=== PATIENT | female | born 1950 | race Caucasian/White ===

== ENCOUNTER 2017-04-22 23:13 | Emergency (ER) | payer OTHER, MEDICAID ==
[~2017-04-22] VITALS: Ht 162.6 cm; Wt 79.0 kg
[2017-04-22] MEDS ORDERED: ONDANSETRON HCL 4MG/2ML VIAL IV STA (23:27)
[2017-04-22] MEDS ORDERED: KETOROLAC 30MG/ML VIAL IV STA (23:27)
[2017-04-22] MEDS ORDERED: SODIUM CHLORIDE 0.9% 1,000 ML IV ONE (23:27)
[2017-04-22] MEDS ORDERED: FAMOTIDINE 20MG/2ML VIAL IV ONE (23:30)
[2017-04-22 23:58] LABS: BASOPHILS % 0.5 % (0.0-2.0); EOSINOPHILS % 0.9 % (0.0-5.0); HEMATOCRIT. 39.9 % (36.0-48.0); HEMOGLOBIN. 13.5 g/dL (12.0-16.0); LYMPHOCYTES % 9.9 % (20.0-50.0); MEAN CORPUSCULAR HEMOGLOBIN 31.4 pg (28.0-32.0); MEAN CORPUSCULAR VOLUME 92.6 fL (81.0-99.0); MONOCYTES % 6.6 % (2.0-8.0); NEUTROPHILS % 82.1 % (40.0-76.0); PLATELET 213 x1000/uL (130-400); RED BLOOD CELL COUNT 4.31 mill/uL (4.2-5.4); RED CELL DISTRIBUTION WIDTH 13.1 % (11.6-14.6)
[2017-04-23 00:13] LABS: CARBON DIOXIDE 24 mEq/L (21-32); CHLORIDE 107 mEq/L (98-107); ETHANOL BLOOD < 10 mg/dL; TROPONIN I < 0.02 ng/mL (0.00-0.04)
[2017-04-23] MEDS ORDERED: MORPHINE SULFATE 2 MG/ML CPJ (NOT FOR IM USE) IV STA (00:36)
[2017-04-23] MEDS ORDERED: MORPHINE SULFATE 10 MG/ML CPJ IV NR (00:45)
[2017-04-23 04:20] VITALS: BP 128/72
== END 2017-04-23 04:23 | disposition home or self-care (01) ==
LOC: ER 23:18
DX: K80.70 Calculus of gallbladder and bile duct without cholecystitis without obstruction (principal); K21.9 Gastro-esophageal reflux disease without esophagitis
CPT/HCPCS: 36415; 71010; 74176; 76705; 80053; 83605; 83690; 83880; 84484; 85025; 85610; 86850; 86900; 86901; 93005; 93971; 96361; 96374; 96375; 99285; G0482; J1885; J2270; J2405; J3490; J7030

== ENCOUNTER 2021-02-18 09:56 | Inpatient (IN) | payer MEDICARE, MEDICAID ==
[~2021-02-18] VITALS: Ht 167.6 cm; Wt 85.7 kg
[2021-02-18] MEDS ORDERED: LORAZEPAM 2MG/ML CPJ IV STA (10:45)
[2021-02-18 11:08] LABS: BASOPHILS % 0.1 % (0.0-2.0); EOSINOPHILS % 0.2 % (0.0-5.0); HEMATOCRIT. 45.2 % (36.0-48.0); HEMOGLOBIN. 15.3 g/dL (12.0-16.0); MEAN CORPUSCULAR HEMOGLOBIN 33.3 pg (28.0-32.0); MEAN CORPUSCULAR VOLUME 98.3 fL (81.0-99.0); MONOCYTES % 6.6 % (2.0-8.0); NEUTROPHILS % 81.1 % (40.0-76.0); PLATELET 181 x1000/uL (130-400)
[2021-02-18 11:16] LABS: PROTHROMBIN TIME 10.9 sec (9.6-11.0)
[2021-02-18 11:17] LABS: CHLORIDE 104 mEq/L (98-107)
[2021-02-18 11:21] LABS: ETHANOL BLOOD < 10 mg/dL
[2021-02-18 11:49] LABS: CLARITY URINE CLEAR (CLEAR); COLOR URINE YELLOW (YELLOW); KETONES URINE TRACE (NEGATIVE); LEUKOCYTE ESTERASE URINE NEGATIVE (NEGATIVE); NITRITE URINE NEGATIVE (NEGATIVE); OCCULT BLOOD URINE NEGATIVE (NEGATIVE); PROTEIN URINE NEGATIVE (NEGATIVE); SPECIFIC GRAVITY URINE 1.016 (1.005-1.030); UROBILINOGEN URINE 0.2 E.U./dL (0.2-1.0)
[2021-02-18 12:02] LABS: *AMPHETAMINES SCREEN URINE NEGATIVE (NEGATIVE); *BARBITURATES SCREEN URINE NEGATIVE (NEGATIVE); *BENZODIAZEPINES SCREEN URINE NEGATIVE (NEGATIVE); *COCAINE SCREEN URINE NEGATIVE (NEGATIVE); METHADONE URINE SCREEN NEGATIVE (NEGATIVE)
[2021-02-18 12:03] LABS: CANNABINOID URINE SCREEN NEGATIVE (NEGATIVE); OPIATES URINE SCREEN NEGATIVE (NEGATIVE); PHENCYCLIDINE URINE SCREEN NEGATIVE (NEGATIVE)
[2021-02-18] MEDS ORDERED: FOLIC ACID 1 MG, THIAMINE HCL 400 MG, MVI, ADULT NO.1 10 ML in DEXTROSE 5% WATER 1,000 ML IV SCH (13:30)
[2021-02-18] MEDS ORDERED: ACETAMINOPHEN 650MG SUPP PR PRN (16:30)
[2021-02-18] MEDS ORDERED: ONDANSETRON HCL 4MG/2ML INJ IV PRN (16:30)
[2021-02-18] MEDS ORDERED: IPRATROPIUM/ALBUTEROL 0.5-3(2.5)MG/3ML NEB NEB PRN (16:30)
[2021-02-18] MEDS ORDERED: MORPHINE SULFATE 2 MG/ML CPJ (NOT FOR IM USE) IV PRN (16:30)
[2021-02-18] MEDS ORDERED: NA PHOS,M-B/NA PHOS,DI-BA ENEMA 118ML PR PRN (16:30)
[2021-02-18] MEDS ORDERED: GUAIFENESIN 200MG/10ML SUGAR FREE UDC PO PRN (16:30)
[2021-02-18] MEDS ORDERED: MAGNESIUM/ALUMINUM HYDROXIDE/SIMETHICONE 30ML UDC PO PRN (16:30)
[2021-02-18] MEDS ORDERED: DOCUSATE SODIUM 100MG CAPSULE PO PRN (16:30)
[2021-02-18] MEDS ORDERED: LEVETIRACETAM 500 MG in SODIUM CHLORIDE 0.9% 100 ML IV SCH (16:30)
[2021-02-18] MEDS ORDERED: DIPHENHYDRAMINE 50MG/ML VIAL IV PRN (16:30)
[2021-02-18] MEDS ORDERED: ACETAMINOPHEN 325MG TABLET PO PRN (16:30)
[2021-02-18] MEDS: DEXT 5%/0.45% NACL 1000ML 1,000 ML IV SCH (17:16)
[2021-02-18] MEDS: LORAZEPAM 2MG/ML CPJ IV PRN (18:33)
[2021-02-18] MEDS ORDERED: LEVETIRACETAM 500MG PREMIX 100 ML IV SCH (21:00)
[2021-02-18] MEDS: FAMOTIDINE 20MG TABLET PO SCH (21:37)
[2021-02-18] MEDS ORDERED: NALOXONE HCL 0.4MG/ML VIAL IV PRN (22:15)
[2021-02-18 23:32] VITALS: BP 136/69
[2021-02-18 23:35] VITALS: BP 136/69
[2021-02-19] VITALS (19 sets, daily range): BP systolic 98–153; BP diastolic 61–97
[2021-02-19 00:45] LABS: CREATINE KINASE 929 IU/L (26-192)
[2021-02-19 00:46] LABS: CREATINE KINASE MB FRACTION 8.9 ng/mL (0.5-3.6)
[2021-02-19] MEDS: LORAZEPAM 2MG/ML CPJ IV PRN ×3 (01:24→18:01)
[2021-02-19] MEDS: DEXT 5%/0.45% NACL 1000ML 1,000 ML IV SCH ×4 (01:52→23:12)
[2021-02-19] MEDS ORDERED: [UNRECOGNIZED DRUG - CODE] PO (05:11)
[2021-02-19] MEDS ORDERED: COMPLETE VITAMIN PO (05:11)
[2021-02-19] MEDS ORDERED: CALC1CAP22 PO (05:11)
[2021-02-19] MEDS ORDERED: DULO60CA64 PO (05:11)
[2021-02-19] MEDS ORDERED: OMEP20TA2 PO (05:11)
[2021-02-19] MEDS ORDERED: SENN25TA PO (05:11)
[2021-02-19] MEDS ORDERED: AMIT100T2 MT (05:11)
[2021-02-19] MEDS ORDERED: OXYB5TAB17 PO (05:11)
[2021-02-19] MEDS ORDERED: PROP20TA19 PO (05:11)
[2021-02-19] MEDS ORDERED: INHALERS INH (05:40)
[2021-02-19] MEDS ORDERED: *PATIENT'S OWN MEDICATION STORAGE XX SCH (06:15)
[2021-02-19 07:36] LABS: BASOPHILS % 0.2 % (0.0-2.0); EOSINOPHILS % 0.7 % (0.0-5.0); HEMATOCRIT. 49.6 % (36.0-48.0); HEMOGLOBIN. 16.1 g/dL (12.0-16.0); LYMPHOCYTES % 18.1 % (20.0-50.0); MEAN CORPUSCULAR HEMOGLOBIN 33.5 pg (28.0-32.0); MEAN CORPUSCULAR VOLUME 103.4 fL (81.0-99.0); MEAN PLATELET VOLUME 8.1 fl (7.4-10.4); MONOCYTES % 10.3 % (2.0-8.0); NEUTROPHILS % 70.7 % (40.0-76.0); PLATELET 169 x1000/uL (130-400); RED CELL DISTRIBUTION WIDTH 14.6 % (11.6-14.6)
[2021-02-19 07:43] LABS: CHLORIDE 106 mEq/L (98-107)
[2021-02-19 07:55] LABS: LDL CHOLESTEROL 189 mg/dL (5-100)
[2021-02-19 07:56] LABS: CREATINE KINASE 776 IU/L (26-192); CREATINE KINASE MB FRACTION 4.6 ng/mL (0.5-3.6)
[2021-02-19 07:57] LABS: T4 FREE 1.03 ng/dL (0.76-1.46)
[2021-02-19 07:58] LABS: HDL CHOLESTEROL 49 mg/dL (40-59)
[2021-02-19] MEDS: LEVETIRACETAM 500MG PREMIX 100 ML IV SCH ×2 (08:53→20:22)
[2021-02-19] MEDS: ASPIRIN 81MG EC TABLET PO SCH (09:00)
[2021-02-19] MEDS: MVI, ADULT NO.1 10 ML, FOLIC ACID 1 MG, THIAMINE HCL 100 MG in DEXT 5%/0.45% NACL 1000M... IV SCH (13:15)
[2021-02-19] MEDS: CHLORDIAZEPOXIDE 5 MG CAPSULE PO SCH ×2 (14:08→21:13)
[2021-02-19] MEDS ORDERED: LIDOCAINE HCL/PF 1% 2ML VIAL ONE (14:50)
[2021-02-19 15:15] LABS: BG CARBOXYHEMOGLOBIN 0.7 % (0.5-1.5); BG DEOXYHEMOGLOBIN 3.3 % (0.0-5.0); BG HCO3 ACT 24.7 mmol/L (22.0-26.0); BG METHEMOGLOBIN 0.2 % (0.0-1.5); BG OXYGEN SATURATION 96.7 % (92.0-98.5); BG OXYHEMOGLOBIN 95.8 % (94.0-97.0); BG PCO2 40.2 mmHg (35.0-45.0); BG PH 7.406 (7.350-7.450); BG PO2 88.5 mmHg (75.0-100.0); BG SAMPLE SITE RIGHT RADIAL; BG TOTAL HEMOGLOBIN 15.2 g/dL (12.0-18.0); BG VENT MODE NASAL CANNULA
[2021-02-19] MEDS: FAMOTIDINE 20MG TABLET PO SCH (20:22)
[2021-02-20] VITALS (13 sets, daily range): BP systolic 116–190; BP diastolic 64–98
[2021-02-20] MEDS: CHLORDIAZEPOXIDE 5 MG CAPSULE PO SCH ×3 (05:41→23:48)
[2021-02-20 06:46] LABS: BASOPHILS % 0.4 % (0.0-2.0); EOSINOPHILS % 3.4 % (0.0-5.0); HEMATOCRIT. 43.2 % (36.0-48.0); HEMOGLOBIN. 14.3 g/dL (12.0-16.0); LYMPHOCYTES % 24.7 % (20.0-50.0); MEAN CORPUSCULAR HEMOGLOBIN 33.6 pg (28.0-32.0); MEAN PLATELET VOLUME 8.1 fl (7.4-10.4); MONOCYTES % 10.7 % (2.0-8.0); NEUTROPHILS % 60.8 % (40.0-76.0); PLATELET 165 x1000/uL (130-400); RED BLOOD CELL COUNT 4.27 mill/uL (4.2-5.4); RED CELL DISTRIBUTION WIDTH 14.3 % (11.6-14.6)
[2021-02-20 06:49] LABS: CHLORIDE 110 mEq/L (98-107)
[2021-02-20 07:16] LABS: HEPATITIS B SURFACE ANTIGEN NEGATIVE
[2021-02-20 07:46] LABS: HEPATITIS A AB IGM NEGATIVE (NEGATIVE)
[2021-02-20] MEDS: LEVETIRACETAM 500MG PREMIX 100 ML IV SCH ×2 (08:27→23:47)
[2021-02-20] MEDS: DEXT 5%/0.45% NACL 1000ML 1,000 ML IV SCH ×2 (09:59→19:53)
[2021-02-20] MEDS: ASPIRIN 81MG EC TABLET PO SCH (09:59)
[2021-02-20] MEDS: CLONIDINE 0.1MG TABLET PO PRN (10:00)
[2021-02-20] MEDS: MVI, ADULT NO.1 10 ML, FOLIC ACID 1 MG, THIAMINE HCL 100 MG in DEXT 5%/0.45% NACL 1000M... IV SCH (14:16)
[2021-02-20] MEDS: AMLODIPINE 5MG TABLET PO SCH (15:05)
[2021-02-20] MEDS: HYDRALAZINE HCL 50MG TABLET PO SCH (17:04)
[2021-02-20] MEDS ORDERED: HYDRALAZINE 20MG/ML VIAL IV PRN (17:15)
[2021-02-20] MEDS: FAMOTIDINE 20MG TABLET PO SCH (23:48)
[2021-02-21] VITALS (15 sets, daily range): BP systolic 142–174; BP diastolic 73–125
[2021-02-21] MEDS: DEXT 5%/0.45% NACL 1000ML 1,000 ML IV SCH ×2 (05:20→15:15)
[2021-02-21] MEDS: CHLORDIAZEPOXIDE 5 MG CAPSULE PO SCH ×3 (05:23→21:04)
[2021-02-21] MEDS: LEVETIRACETAM 500MG PREMIX 100 ML IV SCH ×2 (09:01→21:04)
[2021-02-21] MEDS: AMLODIPINE 5MG TABLET PO SCH (09:01)
[2021-02-21] MEDS: ASPIRIN 81MG EC TABLET PO SCH (09:01)
[2021-02-21] MEDS: HYDRALAZINE HCL 50MG TABLET PO SCH ×3 (09:01→16:45)
[2021-02-21 09:38] LABS: CHLORIDE 112 mEq/L (98-107)
[2021-02-21 11:44] LABS: BASOPHILS % 0.8 % (0.0-2.0); EOSINOPHILS % 3.7 % (0.0-5.0); HEMATOCRIT. 40.7 % (36.0-48.0); HEMOGLOBIN. 13.6 g/dL (12.0-16.0); MEAN CORPUSCULAR HEMOGLOBIN 33.8 pg (28.0-32.0); MEAN CORPUSCULAR VOLUME 100.9 fL (81.0-99.0); MONOCYTES % 11.8 % (2.0-8.0); NEUTROPHILS % 59.7 % (40.0-76.0); PLATELET 151 x1000/uL (130-400); RED BLOOD CELL COUNT 4.03 mill/uL (4.2-5.4); RED CELL DISTRIBUTION WIDTH 14.4 % (11.6-14.6)
[2021-02-21] MEDS: MVI, ADULT NO.1 10 ML, FOLIC ACID 1 MG, THIAMINE HCL 100 MG in DEXT 5%/0.45% NACL 1000M... IV SCH (14:06)
[2021-02-21] MEDS: HYDROCODONE/ACETAMINOPHEN 5/325MG TABLET PO PRN (18:39)
[2021-02-21] MEDS: CLONIDINE 0.1MG TABLET PO PRN (18:39)
[2021-02-21] MEDS: FAMOTIDINE 20MG TABLET PO SCH (21:03)
[2021-02-21] MEDS: LIDOCAINE 5% PATCH TOP SCH (21:05)
[2021-02-22] VITALS (10 sets, daily range): BP systolic 110–180; BP diastolic 46–113
[2021-02-22] MEDS: DEXT 5%/0.45% NACL 1000ML 1,000 ML IV SCH ×2 (00:53→11:00)
[2021-02-22] MEDS: CLONIDINE 0.1MG TABLET PO PRN (06:10)
[2021-02-22] MEDS: CHLORDIAZEPOXIDE 5 MG CAPSULE PO SCH ×3 (06:10→22:23)
[2021-02-22] MEDS: AMLODIPINE 5MG TABLET PO SCH (08:08)
[2021-02-22] MEDS: HYDRALAZINE HCL 50MG TABLET PO SCH ×3 (08:08→17:00)
[2021-02-22] MEDS: ASPIRIN 81MG EC TABLET PO SCH (08:08)
[2021-02-22] MEDS: LEVETIRACETAM 500MG PREMIX 100 ML IV SCH ×2 (08:08→22:23)
[2021-02-22 10:16] LABS: BASOPHILS % 0.4 % (0.0-2.0); EOSINOPHILS % 2.5 % (0.0-5.0); HEMATOCRIT. 40.3 % (36.0-48.0); HEMOGLOBIN. 13.4 g/dL (12.0-16.0); LYMPHOCYTES % 14.2 % (20.0-50.0); MEAN CORPUSCULAR HEMOGLOBIN 33.4 pg (28.0-32.0); MEAN CORPUSCULAR VOLUME 100.4 fL (81.0-99.0); MEAN PLATELET VOLUME 8.1 fl (7.4-10.4); MONOCYTES % 9.6 % (2.0-8.0); NEUTROPHILS % 73.3 % (40.0-76.0); PLATELET 155 x1000/uL (130-400); RED BLOOD CELL COUNT 4.02 mill/uL (4.2-5.4); RED CELL DISTRIBUTION WIDTH 14.2 % (11.6-14.6)
[2021-02-22 10:32] LABS: CHLORIDE 108 mEq/L (98-107)
[2021-02-22] MEDS ORDERED: HYDRALAZINE 10 MG in SODIUM CHLORIDE 0.9% 49.5 ML IV PRN (11:15)
[2021-02-22] MEDS: MVI, ADULT NO.1 10 ML, FOLIC ACID 1 MG, THIAMINE HCL 100 MG in DEXT 5%/0.45% NACL 1000M... IV SCH (14:41)
[2021-02-22] MEDS: HYDROCODONE/ACETAMINOPHEN 5/325MG TABLET PO PRN (15:21)
[2021-02-22] MEDS: LIDOCAINE 5% PATCH TOP SCH (22:21)
[2021-02-22] MEDS: FAMOTIDINE 20MG TABLET PO SCH (22:22)
[2021-02-23] VITALS: BP 119/64
[2021-02-23 04:00] VITALS: BP 108/66
[2021-02-23] MEDS: CHLORDIAZEPOXIDE 5 MG CAPSULE PO SCH ×2 (05:35→14:44)
[2021-02-23 06:48] LABS: BASOPHILS % 0.6 % (0.0-2.0); EOSINOPHILS % 2.3 % (0.0-5.0); HEMATOCRIT. 37.7 % (36.0-48.0); HEMOGLOBIN. 12.9 g/dL (12.0-16.0); LYMPHOCYTES % 22.4 % (20.0-50.0); MEAN CORPUSCULAR HEMOGLOBIN 33.3 pg (28.0-32.0); MEAN CORPUSCULAR VOLUME 97.3 fL (81.0-99.0); MEAN PLATELET VOLUME 8.3 fl (7.4-10.4); NEUTROPHILS % 62.7 % (40.0-76.0); PLATELET 145 x1000/uL (130-400); RED BLOOD CELL COUNT 3.87 mill/uL (4.2-5.4); RED CELL DISTRIBUTION WIDTH 14.1 % (11.6-14.6)
[2021-02-23 07:07] LABS: CHLORIDE 105 mEq/L (98-107)
[2021-02-23 08:00] VITALS: BP 108/71
[2021-02-23] MEDS ORDERED: LEVETIRACETAM 500MG TABLET PO SCH (09:00)
[2021-02-23] MEDS: HYDRALAZINE HCL 50MG TABLET PO SCH ×2 (09:19→13:00)
[2021-02-23] MEDS: ASPIRIN 81MG EC TABLET PO SCH (09:19)
[2021-02-23] MEDS: AMLODIPINE 5MG TABLET PO SCH (09:20)
[2021-02-23 12:00] VITALS: BP 92/52
[2021-02-23] MEDS ORDERED: ASPI-1497 MT (14:59)
[2021-02-23] MEDS ORDERED: KEPP500 MT ×2 (14:59)
[2021-02-23] MEDS ORDERED: AMLO5TAB4 MT (14:59)
[2021-02-23] MEDS ORDERED: FOLI-43 MT (15:02)
[2021-02-23] MEDS ORDERED: MULT-622 MT (15:02)
[2021-02-23] MEDS ORDERED: THIA100T88 MT (15:02)
[2021-02-23 15:18] VITALS: BP 92/53
== END 2021-02-23 16:11 | disposition home or self-care (01) | DRG 917 ==
LOC: ER 10:15 → MICUSO 13:03 → 3WST 21:48 → 6EST 02-22 11:07
PROVIDERS: ADMIT Internal Medicine; ATTEND Internal Medicine
DX: T50.901A Poisoning by unspecified drugs, medicaments and biological substances, accidental (unintentional), initial encounter (principal); G92 Toxic encephalopathy; F10.139 Alcohol abuse with withdrawal, unspecified; M62.82 Rhabdomyolysis; E78.5 Hyperlipidemia, unspecified; Z20.822 Contact with and (suspected) exposure to COVID-19; I10 Essential (primary) hypertension; R13.10 Dysphagia, unspecified; G89.29 Other chronic pain; M54.9 Dorsalgia, unspecified; R73.9 Hyperglycemia, unspecified; Z79.899 Other long term (current) drug therapy; Z79.82 Long term (current) use of aspirin
CPT/HCPCS: 36415; 36600; 70551; 71045; 76700; 80048; 80053; 80061; 80076; 80178; 80305; 80307; 80320; 80329; 81003; 82140; 82375; 82550; 82553; 82805; 83930; 84439; 84443; 84484; 85025; 86592; 86705; 86709; 86803; 87340; 87426; 92610; 93005; 93306; 93970; 97116; 97162; 97535; 99291; J1953; J2060; J2270; J3411; J3490; J7070; G0480